=== PATIENT | female | born 1960 | race American Indian/Alaskan Native ===

== ENCOUNTER 2017-06-19 09:36 | Emergency (ER) | payer MEDICARE, OTHER ==
[2017-06-19 09:46] VITALS: BMI 41.0
--- NOTE | 2017-06-19 10:14 | PDOC ---
Attending Attestation - HPI HPI: 06/19/17 11:59 56 F with a PMH of HTN and cervical HNP, who presents to the ED c/o BUE, BLE, and generalized facial n/t for 3 weeks. She describes an intermittent pins and needles sensation that started in the right hand and is now in all extremities, worse at night. She also c/o numbness in her jaw, cramping in her bilateral wrists, a funny feeling in her forehead, and epigastric pain radiating down her abdomen. She was seen by her PMD for EKG and blood tests. PMD told the pt her sugar was high and informed the pt to go to the ER if she does not feel right again. Pt admits to frequent thirst and urination. Pt denies CP/SOB/JOHNSON/dizziness. Pt denies f/c, n/v/d, weakness. The patient denies dysuria and hematuria. Pt denies falls or balance abnormalities. - Physicial Exam PE: 06/19/17 11:59 GENERAL: Awake, alert, and fully oriented, in no acute distress HEAD: No signs of trauma EYES: PERRLA, EOMI, sclera anicteric, conjunctiva clear ENT: Auricles normal inspection, hearing grossly normal, nares patent, oropharynx clear without exudates. Moist mucosa NECK: Normal ROM, supple, no lymphadenopathy, JVD, or masses LUNGS: Breath sounds equal, clear to auscultation bilaterally. No wheezes, and no crackles HEART: Regular rate and rhythm, normal S1 and S2, no murmurs, rubs or gallops ABDOMEN: Soft, nontender, normoactive bowel sounds. No guarding, no rebound. No masses EXTREMITIES: Normal range of motion, no edema. No clubbing or cyanosis. No cords, erythema, or tenderness NEUROLOGICAL: Cranial nerves II through XII grossly intact. Normal speech SKIN: Warm, Dry, normal turgor, no rashes or lesions noted. <Maylin Key - Last Filed: 06/19/17 13:15> - Resident Resident Name: Asher Haskins - ED Attending Attestation I have performed the following: I have examined & evaluated the patient, The case was reviewed & discussed with the resident, I agree w/resident's findings & plan, Exceptions are as noted - Medical Decision Making 06/19/17 10:14 I, Dr. Linda Navas, DO, attest that this document has been prepared under my direction and personally reviewed by me in its entirety. I further attest, that it accurately reflects all work, treatment, procedures and medical decision -making performed by me. 06/19/17 11:53 a/p: 56yo female with b/l arm and leg tingling and facial tingling -no focal neuro deficits on exam -will obtain labs, head and c spine ct given hx of herniated discs -elevated lipids and glucose as outpt (per the patient) -will repeat labs and imaging -ekg, cxr -will monitor and reassess 06/19/17 11:54 patients numbness/tingling improving 06/19/17 14:[address] and c spine ct without acute findings labs reviewed without acute findings <Linda Navas - Last Filed: 06/19/17 14:19>
--- NOTE | 2017-06-19 10:24 | PDOC ---
History of Present Illness - History of Present Illness Initial Comments: 06/19/17 10:25 56 yo F with h/o HTN, who presents with numbness/tingling. Patient reports acute on chronic widespread numbness/tingling, and pins/needles sensation throughout BL UE, BL LE, and BL face. Also complains of cramping of BL wrists and extremity weakness this AM. Denies dysphagia, facial drooping, confusion, vertigo. Denies N/V, F/C, CP, SOB, abdominal pain, urinary complaints. PCP advised pt. to f/u in ED if s/s of CVA. Patient does not follow with neurology. <Asher Haskins - Last Filed: 06/19/17 13:57> <Linda Navas - Last Filed: 06/19/17 14:18> - General Stated Complaint: NUMBNESS Time Seen by Provider: 06/19/17 10:09 Past History - Past Medical History COPD: No DVT: No HTN: Yes - Immunization History Immunization Up to Date: Yes - Suicide/Smoking/Psychosocial Hx Smoking Status: No Smoking History: Never smoked Years of Tobacco Use: 0 Have you smoked in the past 12 months: No Number of Cigarettes Smoked Daily: 0 Cigars Per Day: 0 Information on smoking cessation initiated: No Hx Alcohol Use: No Drug/Substance Use Hx: No Substance Use Type: Alcohol <Asher Haskins - Last Filed: 06/19/17 13:57> <Linda Navas - Last Filed: 06/19/17 14:18> - Past Medical History Allergies/Adverse Reactions: Allergies Allergy/AdvReac Type Severity Reaction Status Date / Time No Known Allergies Allergy Verified 06/19/17 09:39 Home Medications: Ambulatory Orders Amlodipine Besylate [Norvasc -] 10 mg PO DAILY 09/03/14 Famotidine [Pepcid -] 20 mg PO BID PRN #60 tablet 09/03/14 Omeprazole [Prilosec (RX)] 40 mg PO DAILY 09/03/14 Review of Systems - Review of Systems Comments:: 06/19/17 10:24 GENERAL/CONSTITUTIONAL: No fever or chills. No weakness. HEAD, EYES, EARS, NOSE AND THROAT: No change in vision. No ear pain or discharge. No sore throat.- CARDIOVASCULAR: No chest pain or shortness of breath RESPIRATORY: No cough, wheezing, or hemoptysis. GASTROINTESTINAL: No nausea, vomiting, diarrhea or constipation. GENITOURINARY: No dysuria, frequency, or change in urination. MUSCULOSKELETAL: No joint or muscle swelling or pain. No neck or back pain. SKIN: No rash NEUROLOGIC: +change in strength/sensation. No headache, vertigo, loss of consciousness. ENDOCRINE: No increased thirst. No abnormal weight change HEMATOLOGIC/LYMPHATIC: No anemia, easy bleeding, or history of blood clots. ALLERGIC/IMMUNOLOGIC: No hives or skin allergy. <Asher Haskins - Last Filed: 06/19/17 13:57> *Physical Exam - Vital Signs Last Vital Signs Temp Pulse Resp BP Pulse Ox 98.4 F 79 16 149/80 98 06/19/17 09:41 06/19/17 09:41 06/19/17 09:41 06/19/17 09:41 06/19/17 09:41 - Physical Exam Comments: 06/19/17 10:24 GENERAL: Awake, alert, and fully oriented, in no acute distress HEAD: No signs of trauma, normocephalic, atraumatic EYES: PERRLA, EOMI, sclera anicteric, conjunctiva clear ENT: Hearing grossly normal, nares patent, oropharynx clear without exudates. Moist mucosa NECK: Normal ROM, supple, no lymphadenopathy, JVD, or masses LUNGS: No distress, speaks full sentences, clear to auscultation bilaterally HEART: Regular rate and rhythm, normal S1 and S2, no murmurs, rubs or gallops, peripheral pulses normal and equal bilaterally. EXTREMITIES : Normal inspection, Normal range of motion, no edema. No clubbing or cyanosis. NEUROLOGICAL: Cranial nerves II through XII grossly intact. Normal speech, normal gait, no focal sensorimotor deficits. Neg romberg sign. Normal BOUBACAR. absent dysmetria on FTN. SKIN: Warm, Dry, normal turgor, no rashes or lesions noted. <Asher Haskins - Last Filed: 06/19/17 13:57> - Vital Signs Last Vital Signs Temp Pulse Resp BP Pulse Ox 98.4 F 79 16 149/80 98 06/19/17 09:41 06/19/17 09:41 06/19/17 09:41 06/19/17 09:41 06/19/17 09:41 <Linda Navas - Last Filed: 06/19/17 14:18> ED Treatment Course - LABORATORY CBC & Chemistry Diagram: 06/19/17 12:15 06/19/17 12:15 <Asher Haskins - Last Filed: 06/19/17 13:57> - LABORATORY CBC & Chemistry Diagram: 06/19/17 12:15 06/19/17 12:15 - ADDITIONAL ORDERS Additional order review: Laboratory Results 06/19/17 06/19/17 06/19/17 12:15 12:15 12:15 Sodium 139 Potassium 3.8 Chloride 105 Carbon Dioxide 27 Anion Gap 7 L BUN 17 Creatinine 0.8 Creat Clearance w eGFR > 60 Random Glucose 112 H Calcium 8.5 Magnesium 2.1 2.1 Total Bilirubin 0.4 D AST 15 ALT 21 Alkaline Phosphatase 106 Creatine Kinase 84 Troponin I < 0.02 Total Protein 8.3 H Albumin 3.7 Vitamin B12 Cancelled Serum Folate Cancelled TSH 2.03 06/19/17 12:15 RBC 4.76 MCV 81.5 MCHC 31.5 L RDW 14.6 MPV 8.1 Neutrophils % 68.6 Lymphocytes % 21.7 D Monocytes % 6.6 Eosinophils % 2.3 D Basophils % 0.8 - RADIOLOGY Radiology Studies Ordered: Category Date Time Status CHEST PA & LAT [RAD] Stat Radiology 06/19/17 11:11 Ordered - Medications Given in the ED: ED Medications Discontinued Medications Generic Name Dose Route Start Last Admin Trade Name Freq PRN Reason Stop Dose Admin Sodium Chloride 1,000 ml 06/19/17 11:11 06/19/17 12:25 Normal Saline - IV 06/19/17 11:12 1,000 ml ONCE ONE Administration <Linda Navas - Last Filed: 06/19/17 14:18> Medical Decision Making - Medical Decision Making 06/19/17 10:55 56 yo F with h/o HTN, who presents with acute on chronic widespread numbness/ tingling, and pins/needles sensation throughout BL UE, BL LE, and BL face. Also complains of cramping of BL wrists and extremity weakness this AM. Denies dysphagia, facial drooping, confusion, vertigo. Denies N/V, F/C, CP, SOB, abdominal pain, urinary complaints. Absent neuro deficits on physical exam. S/s most likely 2/2 neuropathy ( diabetic vs. B12 deficient. Will also consider space occupying lesion vs CVA/TIA ( less likely). NIHSS 0. ED Course: CBC, CMP,Mag, B12, Folate, TSH CT HEAD NON CON, CT C SPINE NON CON 06/19/17 10:57 06/19/17 12:47 CBC/CMP: Unremarkable CT HEAD/ C SPINE: No fracture, hemorrhage, or bony abnormality. Patient stable and ready for d/c with return precautions. Advised to f/u with PMD. <Asher Haskins - Last Filed: 06/19/17 13:57> *DC/Admit/Observation/Transfer - Discharge Dispostion Admit: No - Attestations Physician Attestion: 06/19/17 13:57 I attest to the information provided in this note. <Asher Haskins - Last Filed: 06/19/17 13:57> <Linda Navas - Last Filed: 06/19/17 14:18> Diagnosis at time of Disposition: Numbness and tingling - Discharge Dispostion Disposition: HOME Condition at time of disposition: Stable - Referrals Referrals: Liang Hager MD [Staff Physician] - Seth Romo [Primary Care Provider] - - Patient Instructions Printed Discharge Instructions: DI for Numbness/tingling Additional Instructions: Please return to the emergency department with any new or worsening symptoms or concerns. Please follow up with neurology within one week. - Post Discharge Activity
[2017-06-19] MEDS ORDERED: SODIUM CHLORIDE 0.9% 1000 ML INFUS.BAG IV ONE (11:11)
[2017-06-19] MEDS ORDERED: IBUPROFEN 600 MG TABLET (FP) PO ONE ×3 (11:11→14:26)
[2017-06-19 12:28] LABS: BASO % 0.8 % (0-2.0); EOS % 2.3 % (0-4.5); HEMATOCRIT 38.8 % (32.4-45.2); HEMOGLOBIN 12.2 GM/dL (10.7-15.3); LYMPH % 21.7 % (8-40); MCH 25.7 pg (25.7-33.7); MCHC 31.5 g/dl (32.0-36.0); MEAN CELL VOLUME 81.5 fl (80-96); MEAN PLT VOLUME 8.1 fl (7.5-11.1); MONO % 6.6 % (3.8-10.2); NEUT % 68.6 % (42.8-82.8); PLATELET COUNT 360 K/MM3 (134-434); RBC 4.76 M/mm3 (3.60-5.2); RDW 14.6 % (11.6-15.6); WHITE BLOOD COUNT 7.5 K/mm3 (4.0-10.0)
[2017-06-19 13:20] LABS: ALBUMIN 3.7 g/dl (3.4-5.0); ALK PHOS 106 U/L (45-117); ANION GAP 7 (8-16); BILIRUBIN,TOTAL 0.4 mg/dL (0.2-1.0); BLOOD UREA NITROGEN 17 mg/dL (7-18); CALCIUM 8.5 mg/dL (8.5-10.1); CHLORIDE 105 mmol/L (98-107); CO2 27 mmol/L (21-32); CREATININE 0.8 mg/dL (0.55-1.02); GLUCOSE,RANDOM 112 mg/dL (74-106); MAGNESIUM 2.1 mg/dL (1.8-2.4); POTASSIUM 3.8 mmol/L (3.5-5.1); SGOT/AST 15 U/L (15-37); SGPT/ALT 21 U/L (12-78); SODIUM 139 mmol/L (136-145); TOT PROT 8.3 g/dl (6.4-8.2)
[2017-06-19 14:01] LABS: MAGNESIUM 2.1 mg/dL (1.8-2.4)
[2017-06-19 16:08] LABS: URINE APPEARANCE CLEAR; URINE BILIRUBIN NEGATIVE (NEGATIVE); URINE BLOOD 1+ (NEGATIVE); URINE COLOR STRAW; URINE GLUCOSE (UA) NEGATIVE (NEGATIVE); URINE KETONE NEGATIVE (NEGATIVE); URINE LEUK ESTERASE NEGATIVE (NEGATIVE); URINE NITRITE NEGATIVE (NEGATIVE); URINE PROTEIN NEGATIVE (NEGATIVE); URINE UROBILINOGEN NEGATIVE mg/dL (0.2-1.0)
[2017-06-19 16:13] LABS: EPI CELLS RARE /HPF (FEW)
[2017-06-19 17:59] VITALS: BP 140/81; PULSE 76; TEMP 97.9
--- NOTE | 2017-06-20 12:37 | EKG ---
Test Reason : Blood Pressure : / mmHG Vent. Rate : 059 BPM Atrial Rate : 059 BPM P-R Int : 154 ms QRS Dur : 086 ms QT Int : 424 ms P-R-T Axes : 021 039 -23 degrees QTc Int : 419 ms SINUS BRADYCARDIA NONSPECIFIC T WAVE ABNORMALITY ABNORMAL ECG WHEN COMPARED WITH ECG OF 31-MAY-2015 12:27, NONSPECIFIC T WAVE ABNORMALITY NOW EVIDENT IN ANTEROLATERAL LEADS CLINICAL CORRELATION IS RECOMMENDED Confirmed by GAIL PANDA, ABDI ([id number]) on 06/20/2017 12:37:00 PM Referred By: Confirmed By:ABDI REYNOLDS MD
== END 2017-06-19 17:59 | disposition home or self-care (01) ==
LOC: JER 09:36
DX: R20.2 Paresthesia of skin (principal); I10 Essential (primary) hypertension
CPT/HCPCS: 36415; 70450-TC; 71046-TC-FY; 72125-TC; 80053; 81003; 81015; 82550; 82607; 82746; 83735; 84443; 84484; 84703; 85025; 93005; 93010; 99284-25

== ENCOUNTER 2018-11-11 07:20 | Inpatient (IN) | payer MEDICARE, OTHER ==
--- NOTE | 2018-11-11 07:37 | PDOC ---
History of Present Illness - General Chief Complaint: CVA/TIA Stated Complaint: LEFT SIDE FACIAL SWELLING Time Seen by Provider: 11/11/18 07:37 - History of Present Illness Initial Comments: 11/11/18 07:51 Ms. Beach is a 58 yo female w/ pmh of HTN who presents for evaluation of L sided facial drooping noticed since waking up this morning. Patient reports she was at baseline when she went to bed last night. Patient denies any pain or other symptoms and has never had symptoms like this before. BGM upon arrival 111. The patient denies chest pain, shortness of breath, headache and dizziness. Denies fever, chills, nausea, vomit, diarrhea and constipation. Denies dysuria, frequency, urgency and hematuria. Past History - Past Medical History Allergies/Adverse Reactions: Allergies Allergy/AdvReac Type Severity Reaction Status Date / Time No Known Allergies Allergy Verified 06/19/17 09:39 Home Medications: Ambulatory Orders Amlodipine Besylate [Norvasc -] 10 mg PO DAILY 09/03/14 Lisinopril [Prinivil] 10 mg PO DAILY 11/11/18 COPD: No DVT: No HTN: Yes - Immunization History Immunization Up to Date: Yes - Suicide/Smoking/Psychosocial Hx Smoking Status: No Smoking History: Never smoked Years of Tobacco Use: 0 Have you smoked in the past 12 months: No Number of Cigarettes Smoked Daily: 0 Cigars Per Day: 0 Information on smoking cessation initiated: No Hx Alcohol Use: No Drug/Substance Use Hx: No Substance Use Type: Alcohol Review of Systems - Review of Systems Comments:: 11/11/18 07:52 GENERAL/CONSTITUTIONAL: No fever or chills. No weakness. HEAD, EYES, EARS, NOSE AND THROAT: No change in vision. No ear pain or discharge. No sore throat. CARDIOVASCULAR: No chest pain or shortness of breath RESPIRATORY: No cough, wheezing, or hemoptysis. GASTROINTESTINAL: No nausea, vomiting, diarrhea or constipation. GENITOURINARY: No dysuria, frequency, or change in urination. MUSCULOSKELETAL: No joint or muscle swelling or pain. No neck or back pain. SKIN: No rash NEUROLOGIC: No headache, vertigo, loss of consciousness, or change in strength/ sensation. ENDOCRINE: No increased thirst. No abnormal weight change HEMATOLOGIC/LYMPHATIC: No anemia, easy bleeding, or history of blood clots. ALLERGIC/IMMUNOLOGIC: No hives or skin allergy. *Physical Exam - Vital Signs Last Vital Signs Temp Pulse Resp BP Pulse Ox 98.1 F 84 16 164/89 100 11/11/18 07:32 11/11/18 07:32 11/11/18 07:32 11/11/18 07:32 11/11/18 07:32 - Physical Exam Comments: 11/11/18 07:52 GENERAL: Awake, alert, and fully oriented, in no acute distress HEAD: +minor L sided facial droop. No signs of trauma, normocephalic, atraumatic EYES: PERRLA, EOMI, sclera anicteric, conjunctiva clear ENT: Auricles normal inspection, hearing grossly normal, nares patent, oropharynx clear without exudates. Moist mucosa NECK: Normal ROM, supple, no lymphadenopathy, JVD, or masses LUNGS: No distress, speaks full sentences, clear to auscultation bilaterally HEART: Regular rate and rhythm, normal S1 and S2, no murmurs, rubs or gallops, peripheral pulses normal and equal bilaterally. ABDOMEN: Soft, nontender, normoactive bowel sounds. No guarding, no rebound. No masses EXTREMITIES: Normal inspection, Normal range of motion, no edema. No clubbing or cyanosis. NEUROLOGICAL: Cranial nerves II through XII grossly intact. Normal speech, normal gait, no focal sensorimotor deficits SKIN: Warm, Dry, normal turgor, no rashes or lesions noted. NIH Stroke Scale - Last Known Well Date/Time & Onset Date Last Known Well: 11/10/18 Time Last Known Well: 23:55 - Initial Evaluation Level of consciousness: Alert Ask patient the month and their age: Answers both correctly Ask patient to open & close eyes; make fist and let go: Obeys both correctly Best gaze (horizontal eye movement): Normal Visual field testing: No visual field loss Facial paresis (Show teeth/raise eyebrows/close eyes tight): Minor paralysis ( flattened nasolabial fold, asymmetry on smiling) Motor Function: Left Arm: Normal Motor Function: Right Arm: Normal (extends arm 90 (or 45) degrees for 10 seconds without drift Motor Function: Left Leg: Normal (extends leg 30 degrees for 5 seconds without drift) Motor Function: Right Leg: Normal (extends leg 30 degrees for 5 seconds without drift) Limb Ataxia: No ataxia Sensory(Use pinprick test arms,legs,trunk,face/side to side): Normal Best language (Describe picture, name items, read sentences): No Aphasia Dysarthria (read several words): Normal articulation Extinction and Inattention: No abnormality - Total Score NIH Stroke Scale Score: 1 tPA Exclusion checklist 3-4.5h - Time Elapsed Date last known well: 11/10/18 Time last known well: 23:55 Elaspsed time: Day(s) and 9 Hour(s) and 44 Minutes - Thrombolytic Therapy Candidate Is patient eligible for thrombolytic therapy: No - Exclusion Criteria 3-4.5 hr SBP greater than 185 or DBP greater than 110mmHg despite tx: No Recent IC/spinal surgery,head trauma or stroke<3mos.: No Hx IC hemorrhage, IC neoplasm, AV malformation or aneurysm: No Active internal bleeding: No Blding diathesis(low plt ct, inc PTT,INR>1.7 or use of NOAC): No Symptoms suggest subarachnoid hemorrhage: No CT demonstrates multilobar infarct(>1/3 cerebral hemiphere): No Arterial puncture at noncompressible site in previous 7 days: No Blood glucose concentration less than 50mg/dL (2.7mmol/L): No - Relative Exclusion Criteria 3-4.5 hr Life expectancy <1 yr or severe co-morbid illness: No : No Patient/family refused: No Rapid improvement: No Stroke severity too mild: Yes Recent acute CT (w/in previous 3 months): No Seizure at onset with postictal residual neuro impairments: No Major surgery or serious trauma w/in previous 14 days: No Recent GI or hemorrhage (w/in previous 21 days): No - Add'l Relative Exclusion 3-4.5 hr Age > 80: No Hx of both diabetes AND prior ischemic stroke: No Taking an oral anticoagulant regardless of INR: No NIHSS >25: No - Ineligibility reason(s) Reasons No tPA given: Outside of window - delayed arrival, See reason(s) noted above Critical Care Time/MDM Note - Medical Decision Making Note: 11/11/18 07:54 Ms. Beach is a 58 yo female w/ pmh as described who presents for evaluation of symptoms of L sided facial drooping concerning for wakeup stroke. Patient evaluated for infectious vs. electrolyte vs. neurological abnormalities. Labs grossly wnl as below. Head CT negative for acute pathology. EKG normal sinus rhythm. Patient will be admitted for further neurological evaluation / MRI. Laboratory Results - last 24 hr 11/11/18 11/11/18 11/11/18 07:50 07:50 07:50 WBC 7.8 RBC 4.40 Hgb 11.6 Hct 35.7 MCV 81.3 MCH 26.4 MCHC 32.5 RDW 15.1 Plt Count 394 MPV 8.2 Absolute Neuts (auto) 4.6 Neutrophils % 59.0 Lymphocytes % 31.0 D Monocytes % 7.2 Eosinophils % 2.2 Basophils % 0.6 Nucleated RBC % 0 PT with INR 12.00 INR 1.02 Sodium 141 Potassium 3.8 Chloride 106 Carbon Dioxide 29 Anion Gap 6 L BUN 13.0 Creatinine 0.8 Est GFR (CKD-EPI)AfAm 95.52 Est GFR (CKD-EPI)NonAf 82.42 POC Glucometer Random Glucose 111 H Calcium 8.8 Total Bilirubin 0.3 AST 15 ALT 17 Alkaline Phosphatase 117 Creatine Kinase 68 Troponin I < 0.02 Total Protein 7.9 Albumin 3.4 Triglycerides 83 Cholesterol 199 Total LDL Cholesterol 125 H HDL Cholesterol 63 H Urine Color Urine Appearance Urine pH Ur Specific [place] Urine Protein Urine Glucose (UA) Urine Ketones Urine Blood Urine Nitrite Urine Bilirubin Urine Urobilinogen Ur Leukocyte Esterase 11/11/18 11/11/18 07:52 07:56 WBC RBC Hgb Hct MCV MCH MCHC RDW Plt Count MPV Absolute Neuts (auto) Neutrophils % Lymphocytes % Monocytes % Eosinophils % Basophils % Nucleated RBC % PT with INR INR Sodium Potassium Chloride Carbon Dioxide Anion Gap BUN Creatinine Est GFR (CKD-EPI)AfAm Est GFR (CKD-EPI)NonAf POC Glucometer 111 Random Glucose Calcium Total Bilirubin AST ALT Alkaline Phosphatase Creatine Kinase Troponin I Total Protein Albumin Triglycerides Cholesterol Total LDL Cholesterol HDL Cholesterol Urine Color Yellow Urine Appearance Clear Urine pH 7.0 Ur Specific [place] 1.002 L Urine Protein Negative Urine Glucose (UA) Negative Urine Ketones Negative Urine Blood Negative Urine Nitrite Negative Urine Bilirubin Negative Urine Urobilinogen 0.2 Ur Leukocyte Esterase Negative *DC/Admit/Observation/Transfer Diagnosis at time of Disposition: Cerebrovascular accident (CVA) Qualifiers: CVA mechanism: unspecified Qualified Code(s): I63.9 - Cerebral infarction, unspecified - Discharge Dispostion Decision to Admit order: Yes - Referrals - Patient Instructions - Post Discharge Activity
[2018-11-11 08:02] LABS: BASO % 0.6 % (0-2.0); EOS % 2.2 % (0-4.5); HEMATOCRIT 35.7 % (32.4-45.2); HEMOGLOBIN 11.6 GM/dL (10.7-15.3); MCH 26.4 pg (25.7-33.7); MCHC 32.5 g/dl (32.0-36.0); MEAN CELL VOLUME 81.3 fl (80-96); MEAN PLT VOLUME 8.2 fl (7.5-11.1); MONO % 7.2 % (3.8-10.2); RDW 15.1 % (11.6-15.6); WHITE BLOOD COUNT 7.8 K/mm3 (4.0-10.0)
[2018-11-11 08:03] LABS: URINE APPEARANCE CLEAR; URINE BILIRUBIN NEGATIVE (NEGATIVE); URINE COLOR YELLOW; URINE GLUCOSE (UA) NEGATIVE (NEGATIVE); URINE KETONE NEGATIVE (NEGATIVE); URINE LEUK ESTERASE NEGATIVE (NEGATIVE); URINE NITRITE NEGATIVE (NEGATIVE); URINE PROTEIN NEGATIVE (NEGATIVE); URINE UROBILINOGEN 0.2 mg/dL (0.2-1.0)
[2018-11-11 08:25] LABS: ALBUMIN 3.4 g/dl (3.4-5.0); ALK PHOS 117 U/L (45-117); ANION GAP 6 MMOL/L (8-16); BILIRUBIN,TOTAL 0.3 mg/dL (0.2-1); CALCIUM 8.8 mg/dL (8.5-10.1); CHLORIDE 106 mmol/L (98-107); CHOLESTEROL 199 mg/dL (50-200); CO2 29 mmol/L (21-32); CREATININE 0.8 mg/dL (0.55-1.3); GLUCOSE,RANDOM 111 mg/dL (74-106); HDL CHOLESTEROL 63 mg/dL (40-60); POTASSIUM 3.8 mmol/L (3.5-5.1); SGOT/AST 15 U/L (15-37); SGPT/ALT 17 U/L (13-61); SODIUM 141 mmol/L (136-145); TOT PROT 7.9 g/dl (6.4-8.2); TRIGLYCERIDES 83 mg/dL (0-150)
[2018-11-11 08:29] LABS: PLATELET COUNT 394 K/MM3 (134-434)
[2018-11-11 08:33] LABS: INR 1.02 (0.83-1.09)
--- NOTE | 2018-11-11 08:58 | PDOC ---
Attending Attestation - Resident Resident Name: Jovanni Mcgovern - ED Attending Attestation I have performed the following: I have examined & evaluated the patient, The case was reviewed & discussed with the resident, I agree w/resident's findings & plan, Exceptions are as noted - HPI HPI: 58 yo F history HTN presents with L-sided facial droop. She states she felt well last night, but woke up this morning with the droop, in particular she noted a loss of the nasolabial fold on the L side. She was still able to move her forehead. It has improved since that time. Now she is having some numbness to the L leg and an intermittent pinching sensation in her chest. Denies SOB, leg swelling, weakness, headache. No recent trauma. - Physicial Exam PE: GENERAL: Awake, alert, and fully oriented, in no acute distress HEAD: No signs of trauma EYES: PERRLA, EOMI, sclera anicteric, conjunctiva clear ENT: Auricles normal inspection, hearing grossly normal, nares patent, oropharynx clear without exudates. Moist mucosa NECK: Normal ROM, supple, no lymphadenopathy, JVD, or masses LUNGS: Breath sounds equal, clear to auscultation bilaterally. No wheezes, and no crackles HEART: Regular rate and rhythm, normal S1 and S2, no murmurs, rubs or gallops ABDOMEN: Soft, nontender, normoactive bowel sounds. No guarding, no rebound. No masses EXTREMITIES: Normal range of motion, no edema. No clubbing or cyanosis. No cords, erythema, or tenderness NEUROLOGICAL: Cranial nerves II through XII grossly intact. Normal speech, normal gait. Motor and sensation intact SKIN: Warm, Dry, normal turgor, no rashes or lesions noted. - Medical Decision Making Pt with L sided facial droop that has resolved on arrival in ED, now with leg numbness and chest "pinching". NIHSS is 1 based on slight asymmetry of her mouth while talking. CTH no acute findings. Will admit to hospitalist service. NIH Stroke Scale - Last Known Well Date/Time & Onset Date Last Known Well: 11/10/18 - Initial Evaluation Level of consciousness: Alert Ask patient the month and their age: Answers both correctly Ask patient to open & close eyes; make fist and let go: Obeys both correctly Best gaze (horizontal eye movement): Normal Visual field testing: No visual field loss Facial paresis (Show teeth/raise eyebrows/close eyes tight): Minor paralysis ( flattened nasolabial fold, asymmetry on smiling) Motor Function: Left Arm: Normal Motor Function: Right Arm: Normal (extends arm 90 (or 45) degrees for 10 seconds without drift Motor Function: Left Leg: Normal (extends leg 30 degrees for 5 seconds without drift) Motor Function: Right Leg: Normal (extends leg 30 degrees for 5 seconds without drift) Limb Ataxia: No ataxia Sensory(Use pinprick test arms,legs,trunk,face/side to side): Normal Best language (Describe picture, name items, read sentences): No Aphasia Dysarthria (read several words): Normal articulation Extinction and Inattention: No abnormality - Total Score NIH Stroke Scale Score: 1
--- NOTE | 2018-11-11 10:10 | HP ---
CHIEF COMPLAINT: L facial droop PCP: HISTORY OF PRESENT ILLNESS: 58 y/o F with PMH HTN, GERD, herniated cervical and L5-S1 discs, who presents to the ED c/o L facial droop since she woke up this AM. As per pt, last night she went to sleep "sometime before midnight." States she was in her USOH at this time. She woke up between 6-6:30AM and noticed that the L side of her face was drooping. States that the L side of her face "felt heavy." Denied drooling, dysarthria, or any numbness in her face, or her UE or LE. At this point, she thought that she was having a stroke so she decided to take a shower and drink some mint tea before arriving to the ED for further evaluation. During this time , she endorses generalized myalgias from arthritis, and chronic indigestion for which she takes omeprazole. Denies JOHNSON, fever, chills, SOB, chest pain or changes in urinary or bowel function. Has been seen in past for b/l UE, LE numbness and tingling, which she attributes to her herniated cervical, and L5-S1 discs. Denies f/u with neuro. Has seen a paper supervisor in past, does not remember name. Stress test was WNL in 2013, and pt states she had one done across the street last yr. Was told it was WNL as well. At baseline, pt ambulates independently. Lives with at home. Is on worker's comp after workplace injuries while she was working at [employer] and after working for [employer] as a [employer]. ER course was notable for: (1) NIHSS : 1 by ER (2) outside tPA window (3) Recent Travel: denies PAST MEDICAL HISTORY: as above PAST SURGICAL HISTORY: L shoulder tear (2018) Social History: on worker's comp after workplace injuries while working at [employer] and [employer] as a [employer]. lives at home w . ambulates independently. From [facility]. Smoking: denies Alcohol: denies Drugs: denies Family History: brother -CABG, mother- passed at age 76 from "heart problems" and sister- pre-DM Allergies No Known Allergies Allergy (Verified 06/19/17 09:39) HOME MEDICATIONS: Amlodipine Besylate [Norvasc -] 10 mg PO DAILY 09/03/14 Gabapentin [Neurontin] 600 mg PO DAILY 11/11/18 Lisinopril [Prinivil -] 40 mg PO DAILY 11/11/18 Naproxen 500 mg PO BID 11/11/18 meds have been verified with pt's pharmacies. receives lisinopril and amlodipine from [facility] gabapentin, naproxen from [facility]. REVIEW OF SYSTEMS +GI indigestion +myalgias +L facial droop, numbness PHYSICAL EXAMINATION Vital Signs - 24 hr 11/11/18 11/11/18 07:32 09:41 Temperature 98.1 F 98.5 F Pulse Rate 84 Pulse Rate [ 67 Apical] Respiratory 16 16 Rate Blood Pressure 164/89 Blood Pressure 151/77 [Right Arm] O2 Sat by Pulse 100 98 Oximetry (%) GENERAL: Pleasant. AAO x 3 . in NAD HEAD: NCAT. +L flattening nasolabial fold EYES: Pupils equal, round and reactive to light, extraocular movements intact EARS, NOSE, THROAT: Ears normal, nares patent, oropharynx clear without exudates. Moist mucous membranes. NECK: Normal range of motion, supple LUNGS: Breath sounds equal, clear to auscultation bilaterally. No wheezes, and no crackles. No accessory muscle use. HEART: Regular rate and rhythm, normal S1 and S2 without murmur, rub or gallop. ABDOMEN: Soft, obese, nontender, not distended, normoactive bowel sounds MUSCULOSKELETAL: +hyperkeratotic scars L shoulder from past sx UPPER EXTREMITIES: +scratch mascorro RUE LOWER EXTREMITIES: 2+ pt pulses, warm, well-perfused. No calf tenderness. No peripheral edema. NEUROLOGICAL: Cranial nerves II-XII intact. +L flattening nasolabial fold, facial droop w/ decr sensation. +decr sensation to pinprick over LLE. No pronator drift. 5/5 motor strength UE, LE. No dysmetria, FTN, HTS intact. PSYCHIATRIC: Cooperative. Good eye contact. SKIN: Warm, dry, normal turgor Laboratory Tests 11/11/18 11/11/18 11/11/18 07:50 07:50 07:56 WBC 7.8 Hgb 11.6 Hct 35.7 Plt Count 394 Sodium 141 Potassium 3.8 Chloride 106 Carbon Dioxide 29 BUN 13.0 Creatinine 0.8 Random Glucose 111 H Triglycerides 83 Cholesterol 199 Total LDL Cholesterol 125 H HDL Cholesterol 63 H Ur Specific [place] 1.002 L Urine Protein Negative Urine Glucose (UA) Negative Urine Ketones Negative Urine Blood Negative Urine Nitrite Negative Urine Bilirubin Negative Urine Urobilinogen 0.2 EKG: NSR, nl axis, rate 69bpm, qtc 428ms. no st-t wave changes CTH: mild vol loss, without acute changes ASSESSMENT/PLAN: 58 y/o F with PMH HTN, GERD, herniated cervical and L5-S1 discs, who presents to the ED c/o L facial droop since she woke up this AM. #R/o CVA -NIHSS 2 on my exam (+flattened L nasolabial fold, mild sensation loss sharp/ dull LLE) -outside of tPA window as pt woke up with sx. -CTH (-) for acute changes -started on asa 81mg qd, crestor 20mg qd -f/u ECHO -f/u carotid duplex -f/u brain MRI -f/u a1c -PT -S/S -neurochecks q2h -stroke/tele monitoring -Neuro consult: Dr. Hager. called by ED #HTN- uncontrolled -did not take meds this AM -allow for permissive htn 24hrs -c/w lisinopril, amlodipine #GERD -c/w protonix pt was not taking at home since insurance ran out #herniated cervical, L5-s1 discs -hold naproxen for now, not in pain currently -can use tylenol PRN if needed #hx b/l numbness, tingling LE -c/w gabapentin qHS #F/E/N no IVF required at this time continue to follow lytes cholesterol controlled/low na diet. passed bedside swallow however as per protocol S/S #PPX hep 5k sq tid #Dispo admit to tele Visit type - Emergency Visit Emergency Visit: Yes ED Registration Date: 11/11/18 Care time: The patient presented to the Emergency Department on the above date and was hospitalized for further evaluation of their emergent condition. - New Patient This patient is new to me today: Yes Date on this admission: 11/11/18 - Critical Care Critical Care patient: No
[2018-11-11] MEDS ORDERED: LISINOPRIL 20 MG TABLET (FP) PO SCH (10:19)
[2018-11-11] MEDS ORDERED: amLODIPine BESYLATE 10 MG TABLET (FP) PO SCH (10:19)
[2018-11-11] MEDS ORDERED: ASPIRIN 81 MG CHEWABLE TABLETS ONE (10:25)
[2018-11-11] MEDS: ASPIRIN 81 MG CHEWABLE TABLETS PO SCH (10:27)
--- NOTE | 2018-11-11 11:30 | EKG ---
Test Reason : Blood Pressure : / mmHG Vent. Rate : 069 BPM Atrial Rate : 069 BPM P-R Int : 150 ms QRS Dur : 086 ms QT Int : 400 ms P-R-T Axes : 035 019 006 degrees QTc Int : 428 ms NORMAL SINUS RHYTHM NONSPECIFIC ST ABNORMALITY POOR R WAVE PROGRESSION Confirmed by EMMETT TOMLINSON MD ([id number]) on 11/11/2018 11:30:03 AM Referred By: Confirmed By:EMMETT TOMLINSON MD
--- NOTE | 2018-11-11 11:58 | PN ---
Teaching Attending Note Name of Resident: Neena Sharp ATTENDING PHYSICIAN STATEMENT I saw and evaluated the patient. I reviewed the resident's note and discussed the case with the resident. I agree with the resident's findings and plan as documented. SUBJECTIVE:58yo F with PMH HTN and GERD presented to the Er after having L facial droop and heaviness. states she went to bed without any symptoms and that these symptoms started when waking up. had no other assoc symptoms. denies Cp, SOB, fever, chills, N/V/c/d, was feeling well the past few days, states she has not taken her meds for over a month but did take norvasc last night because she found her bottle. OBJECTIVE: Last Vital Signs Temp Pulse Resp BP Pulse Ox 98.5 F 67 16 151/77 98 11/11/18 09:41 11/11/18 09:41 11/11/18 09:41 11/11/18 09:41 11/11/18 09:41 General NAD CV S1 S2 RRR no murmur/rub/gallop lungs CTA B/L no wheeezing/rales/rhonchi Abdomen soft NT/ND Extremities no pedal edema Neuro CN II-XII grossly intact, speech intact. no pronator no dysmetria. strength and sensation equal in all 4 extremities, gait testing deferred ASSESSMENT AND PLAN: 58yo F with PMH HTN and GERD presented to the Er after having L facial droop and heaviness 1. R/o CVA- tele admission for cardiac monitoring. NIHSS on arrival 1. nothing on my exam but reports her L side of face feels heavy. no TPA as outside window. will get MRI, carotid doppler and echo. Neuro/speech and swallow and PT eval. start ASA and high intensity statin. lipid DVT profile and head CT reviewed. 2. HTN- allow for permissive HTN, re-start home medications ater 24H to maintain tight BP control 3. DVT ppx- hep sq
--- NOTE | 2018-11-11 11:59 | CONSULT ---
Admitting History and Physical - Primary Care Physician PCP: Adrienne Parker - Admission History of Present Illness: 58 y/o F with PMH HTN, GERD, herniated cervical and L5-S1 discs, who presents to the ED c/o L facial droop since she woke up this AM. Selected Entries 11/11/18 11/11/18 07:32 09:41 Temperature 98.1 F 98.5 F Blood Pressure 164/89 Blood Pressure 151/77 [Right Arm] Laboratory Tests 11/11/18 07:50 WBC 7.8 History Source: Patient Limitations to Obtaining History: No Limitations - Smoking History Smoking history: Never smoked Have you smoked in the past 12 months: No Aproximately how many cigarettes per day: 0 - Alcohol/Substance Use Hx Alcohol Use: No History - Admission Reason For Visit: CVA - Diagnostics X-ray: Report Reviewed CT Scan: Report Reviewed Modified Barium Swallow: Pending - General Mental Status: Alert and Oriented, Awake and Alert, Able to Follow Commands Attention: Intact Ability to Follow Directions: Excellent Head/Neck Control: WFL - Hearing Hearing: Functional Speech Evaluation - Communication Primary Language: TAMAZIGHT Communication: Yes: Within Normal Limits Oral Expression Ability: Yes: No Impairment - Speech Production Able to Make Needs Known: Yes: WNL Intelligibility: Yes: WNL - Speech Characteristics Voice Loudness: Normal Voice Pitch: Yes: Normal Voice Phonatory-based Quality: Yes: Normal Speech Pattern: Normal Speech Clarity: < 100% Nasal Resonance: Normal Articulation: Yes: Precise Rate of Speech: Intact - Language/Auditory Comprehension Follows: Yes: 2 Stage Simple Commands - Language/Verbal Expression Able to Respond to Simple Queries: Yes: WNL Able to Communicate Wants and Needs: Yes: WNL Functional Communication Status: Yes: WNL - Memory/Perception rat exterminator Memory: Yes: WNL Short Term Memory: Yes: WNL - Swallow Evaluation/Bedside Assessment Current Nutritional Intake: Regular, Thin Liquids Oral Secretions: Yes: WFL Dentition: Yes: Adequate, Missing Teeth Facial Symmetry at Rest: Facial Droop Left (mild) Facial Symmetry on Retraction: Symmetrical Facial Movement: Controlled Sensation: Reduced Left Against Resistance Opening: Normal Against Resistance Closing: Normal Pucker Lips: Normal Smile: Normal Lingual Movement: Normal, Symmetric Lingual Speed of Movement: Normal Lingual Movement Strgth Against Opposition: Normal Lingual Movement Characteristics: Normal Laryngeal Movement: Able to Palpate Rate of Intake: WFL Bolus Size: WFL Labial Seal: WFL Chewing: WFL Oral Prep Time: WFL A-P Transit: WFL Pocketing: None Timing of Swallow: WFL Coughing/Throat Clear: No Change in Voice: No Recommendations - Speech Evaluation, Impression/Plan Impression: Mild left facial at rest with good labial retraction. Reports reduced sensation on left. Reports some visual difficulty on left- "feels like my hair is covering me on the left-Hemianopsia? No left neglect. Able to identify no. of fingers peripherally without difficulty. Cognition, language, speech prod, swallowing grossly intact/functional - Dysphagia Impressions/Plan Swallowing Skills: WFL Dysphagia Impressions: No Impairment *Silent aspiration: cannot be R/O at bedside Recommendations: Neuro Consult - Recommendations Diet Consistency: Regular Medication Administration: Whole with water Liquids: Thin Liquids
[2018-11-11] MEDS: PANTOPRAZOLE 20 MG TABLET (FP) PO SCH (14:00)
[2018-11-11] MEDS ORDERED: PANTOPRAZOLE 40 MG TABLET (FP) ONE (14:19)
--- NOTE | 2018-11-11 15:08 | ECHO ---
Name: MELVA TOBIAS Exam:Adult Echocardiogram Study Date: 11/11/2018 02:12 PM Age: 58 yrs Reason For Study: R/O CVA Height: 61 in Weight: 224 lb BSA: 2.0 m2 MMode/2D Measurements & Calculations IVSd: 0.82 cm Ao root diam: 2.4 cm LVIDd: 5.3 cm LA dimension: 3.3 cm LVIDs: 3.8 cm LVPWd: 0.83 cm EDV(Teich): 134.7 ml LVOT diam: 2.0 cm ESV(Teich): 62.7 ml Doppler Measurements & Calculations MV E max jey: 84.9 cm/sec Ao V2 max: 152.0 cm/sec MV A max jey: 84.9 cm/sec Ao max P.2 mmHg MV E/A: 1.0 Ao V2 mean: 110.6 cm/sec MV dec time: 0.28 sec Ao mean P.4 mmHg Ao V2 VTI: 37.4 cm JEB(I,D): 1.2 cm2 JEB(V,D): 1.2 cm2 LV V1 max P.3 mmHg SV(LVOT): 44.5 ml LV V1 mean P.78 mmHg LV V1 max: 56.3 cm/sec LV V1 mean: 42.3 cm/sec LV V1 VTI: 14.3 cm Med Peak E' Jey: 7.0 cm/sec Med E/e': 12.1 Lat Peak E' Jey: 9.1 cm/sec Lat E/e': 9.4 Procedure The study was technically difficult with many images being suboptimal in quality. Left Ventricle Left ventricular systolic function is grossly normal. Ejection Fraction = 50-55%. Right Ventricle The right ventricle is grossly normal size. The right ventricular systolic function is grossly normal . Atria Normal left and right atrial size and function. Mitral Valve The mitral valve is normal in structure and function. There is no mitral valve stenosis. There is tra ce to mild mitral regurgitation. Tricuspid Valve The tricuspid valve is normal in structure and function. There is mild tricuspid regurgitation. Aortic Valve The aortic valve opens well. No hemodynamically significant valvular aortic stenosis. No aortic regur gitation is present. Pulmonic Valve The pulmonic valve is not well seen, but is grossly normal. There is no pulmonic valvular stenosis. Great Vessels The aortic root is normal size. Pericardium/Pleura There is no pericardial effusion. Interpretation Summary The study was technically difficult with many images being suboptimal in quality. Left ventricular systolic function is grossly normal. Ejection Fraction = 50-55%. There is trace to mild mitral regurgitation. There is mild tricuspid regurgitation. There is no pericardial effusion. MD Goldstein *Dawit 11/11/2018 03:08 PM
[2018-11-11] MEDS ORDERED: HEPARIN NA (PORCINE) 5,000 UNITS/ML 1ML VIAL ONE (19:24)
[2018-11-11] MEDS: HEPARIN NA (PORCINE) 5,000 UNITS/ML 1ML VIAL SQ SCH (19:28)
[2018-11-11] MEDS: GABAPENTIN 300 MG CAPSULE (FP) PO SCH ×2 (21:41→21:43)
[2018-11-11] MEDS ORDERED: ATORVASTATIN CA 40 MG TABLET (FP) PO SCH (22:00)
[2018-11-11] MEDS ORDERED: ROSUVASTATIN CA 20 MG TABLET (FP) PO SCH (22:00)
[2018-11-12 01:21] VITALS: BMI 40.9
[2018-11-12] MEDS: HEPARIN NA (PORCINE) 5,000 UNITS/ML 1ML VIAL SQ SCH ×2 (01:30→09:45)
[2018-11-12 07:30] LABS: BLOOD UREA NITROGEN 12.1 mg/dL (7-18); CALCIUM 8.6 mg/dL (8.5-10.1); CREATININE 0.7 mg/dL (0.55-1.3); MAGNESIUM 2.3 mg/dL (1.8-2.4); PHOSPHOROUS 3.5 mg/dL (2.5-4.9); POTASSIUM 4.1 mmol/L (3.5-5.1)
[2018-11-12] MEDS: ASPIRIN 81 MG CHEWABLE TABLETS PO SCH (09:46)
[2018-11-12] MEDS: PANTOPRAZOLE 20 MG TABLET (FP) PO SCH (09:46)
[2018-11-12] MEDS ORDERED: LISINOPRIL 20 MG TABLET (FP) PO SCH (10:00)
[2018-11-12] MEDS ORDERED: amLODIPine BESYLATE 10 MG TABLET (FP) PO SCH (10:00)
--- NOTE | 2018-11-12 13:02 | CON.NEURO ---
Consult Consult Specialty:: NEUROLOGY-TONYA PANDA for DR. Hager - History of Present Illness History of Present Illness: 58yo F with PMH HTN and GERD presented to the Er after having L facial droop and heaviness. states she went to bed without any symptoms and that these symptoms started when waking up. had no other assoc symptoms. denies Cp, SOB, fever, chills, N/V/c/d, was feeling well the past few days, states she has not taken her meds for over a month but did take norvasc last night because she found her bottle.Reports she feels better now, started on ASA - Past Medical History ...: No - Alcohol/Substance Use Hx Alcohol Use: No - Smoking History Smoking history: Never smoked Have you smoked in the past 12 months: No Aproximately how many cigarettes per day: 0 Home Medications - Allergies Allergies/Adverse Reactions: Allergies Allergy/AdvReac Type Severity Reaction Status Date / Time No Known Allergies Allergy Verified 06/19/17 09:39 - Home Medications Home Medications: Ambulatory Orders Amlodipine Besylate [Norvasc -] 10 mg PO DAILY 09/03/14 Gabapentin [Neurontin] 300 mg PO HS 11/11/18 Lisinopril [Prinivil -] 40 mg PO DAILY 11/11/18 Aspirin [ASA -] 81 mg PO DAILY #30 tab.chew 11/12/18 Rosuvastatin [Crestor -] 20 mg PO HS #30 tablet 11/12/18 Physical Exam-Neuro Vital Signs: Vital Signs Temperature 97.8 F 11/12/18 10:00 Pulse Rate 77 11/12/18 10:00 Respiratory Rate 18 11/12/18 10:00 Blood Pressure 161/73 11/12/18 10:00 O2 Sat by Pulse Oximetry (%) 100 11/12/18 08:42 Labs: CBC, BMP 11/11/18 07:50 11/12/18 05:36 INR, PTT INR 1.02 (0.83-1.09) 11/11/18 07:50 - Neuro Exam DTR's: 1+ Left Bicep, 1+ Right Bicep, 1+ Left Tricep, 1+ Right Tricep, 1+ Left Brachioradialis, 1+ Right Brachioradialis, 1+ Left Achilles, 1+ Right Achilles Motor Strength: 5/5: Left Arm, Right Arm, Left Leg, Right Leg Imaging - Results Cat Scan: Report Reviewed (without abn.) MRI: Report Reviewed (without abn.) Assessment/Plan pt. with vasc.risk factors, now with transient/resolved left face "heaviness" and ?/facial palsy. DDx. includes more likely [place], less likely TIA. no further neurologuic intervention required at this time. Cont. antiplatelet agent. f/u as out.pt with Dr. hager.Thank you.
--- NOTE | 2018-11-12 13:34 | DS ---
Physical Exam: SUBJECTIVE: Patient seen and examined OBJECTIVE: Vital Signs Period Temp Pulse Resp BP Sys/[place] Pulse Ox Last 24 Hr 97.8 F-98.7 F 55-77 16-18 110-161/66-75 99-100 PHYSICAL EXAM GENERAL: The patient is awake, alert, and fully oriented, in no acute distress. HEAD: Normal with no signs of trauma. EYES: PERRL, extraocular movements intact, sclera anicteric, conjunctiva clear. ENT: Ears normal, nares patent, oropharynx clear without exudates, moist mucous membranes. NECK: Trachea midline, full range of motion, supple. LUNGS: Breath sounds equal, clear to auscultation bilaterally, no wheezes, no crackles, no accessory muscle use. HEART: Regular rate and rhythm, S1, S2 without murmur, rub or gallop. ABDOMEN: Soft, nontender, nondistended, normoactive bowel sounds, no guarding, no rebound, no hepatosplenomegaly, no masses. EXTREMITIES: 2+ pulses, warm, well-perfused, no edema. NEUROLOGICAL: Cranial nerves II through XII grossly intact. Normal speech, gait not observed. PSYCH: Normal mood, normal affect. SKIN: Warm, dry, normal turgor, no rashes or lesions noted. LABS Laboratory Results - last 24 hr 11/11/18 11/11/18 11/12/18 13:23 13:25 05:36 Sodium 141 Potassium 4.1 Chloride 106 Carbon Dioxide 29 Anion Gap 7 L BUN 12.1 Creatinine 0.7 Est GFR (CKD-EPI)AfAm 112.26 Est GFR (CKD-EPI)NonAf 96.86 Random Glucose 85 Calcium 8.6 Phosphorus 3.5 Magnesium 2.3 Blood Type O POSITIVE O POSITIVE Antibody Screen Negative HOSPITAL COURSE: Date of Admission:11/11/18 Date of Discharge: 11/12/18 ADmitting diagnosis: TIA vs [place] palsy Pre hospital course 58 y/o F with PMH HTN, GERD, herniated cervical and L5-S1 discs, who presents to the ED c/o L facial droop since she woke up this AM. As per pt, last night she went to sleep "sometime before midnight." States she was in her USOH at this time. She woke up between 6-6:30AM and noticed that the L side of her face was drooping. States that the L side of her face "felt heavy." Denied drooling, dysarthria, or any numbness in her face, or her UE or LE. At this point, she thought that she was having a stroke so she decided to take a shower and drink some mint tea before arriving to the ED for further evaluation. During this time , she endorses generalized myalgias from arthritis, and chronic indigestion for which she takes omeprazole. Denies JOHNSON, fever, chills, SOB, chest pain or changes in urinary or bowel function. Has been seen in past for b/l UE, LE numbness and tingling, which she attributes to her herniated cervical, and L5-S1 discs. Denies f/u with neuro. Has seen a head of maintenance in past, does not remember name. Stress test was WNL in 2013, and pt states she had one done across the street last yr. Was told it was WNL as well. At baseline, pt ambulates independently. Lives with at home. 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 Subsequent hospital course Ad[facility] cardiac monitoring., no events on monitor. Echo, carotid doppler, Brain MRI and Head CT were done and all negative. symptoms resolved. started on asa and crestor. seen by neuro. stressed importance of medication complaince as pt takes meds intermittently. d/c home with outpatient follow up Minutes to complete discharge: 40 Discharge Summary Reason For Visit: CVA Condition: Improved - Instructions Diet, Activity, Other Instructions: You were observed in the hospital because of your facial numbness which has improved. All testing was negative You were started on medications to lower your risks of having a stroke in the future. Caution taking an NSAID (Naproxen) while on aspirin as this can increase your risk of bleeding. Take these medications as instructed. it is very important that you take your medications as instructed on a daily basis Follow a low salt diet, Increase exercise to 3x/week for 30 minute intervals and increase as tolerated. These will promote healthy living and weight loss. Follow up [facility] neurology in 2 weeks Follow up with your primary care doctor in 1 week. IF you do not have one. information on one has been provided. If your symptoms worsen or develop chest pain return to the ER. Referrals: Varinder Mcwilliams MD [Staff Physician] - Liang Hager MD [Staff Physician] - Disposition: HOME - Home Medications Comprehensive Discharge Medication List: Ambulatory Orders Amlodipine Besylate [Norvasc -] 10 mg PO DAILY 09/03/14 Gabapentin [Neurontin] 300 mg PO HS 11/11/18 Lisinopril [Prinivil -] 40 mg PO DAILY 11/11/18 Aspirin [ASA -] 81 mg PO DAILY #30 tab.chew 11/12/18 Rosuvastatin [Crestor -] 20 mg PO HS #30 tablet 11/12/18 This patient is new to me today: No Emergency Visit: Yes ED Registration Date: 11/11/18 Care time: The patient presented to the Emergency Department on the above date and was hospitalized for further evaluation of their emergent condition. Critical Care patient: No - Discharge Referral Referred to [facility] Med P.C.: No
[2018-11-12 15:42] VITALS: BP 134/69; PULSE 68; TEMP 98.4
== END 2018-11-12 15:30 | disposition home or self-care (01) | DRG 74 ==
LOC: JER 07:20 → INTOOBSV 08:46 → UNDOADMOB 08:46 → JERBED 08:46 → OBSVTOIN 11:16 → J4W 19:45
PROVIDERS: ADMIT Internal Medicine; ATTEND Internal Medicine
DX: G51.0 Bell's palsy (principal); I10 Essential (primary) hypertension; R29.701 NIHSS score 1; K21.9 Gastro-esophageal reflux disease without esophagitis; M50.20 Other cervical disc displacement, unspecified cervical region; M51.27 Other intervertebral disc displacement, lumbosacral region; R20.0 Anesthesia of skin
CPT/HCPCS: 36415; 70450-TC; 70551-TC; 80048; 80053; 81003; 82465; 82550; 82962; 83036; 83718; 83721; 83735; 84100; 84478; 84484; 85025; 85610; 86850; 86900; 86901; 93005; 93010; 93306-TC; 93880-TC; 97116-GP; 97161-GP; 99285-25; G0378; J1644

== ENCOUNTER 2018-11-13 19:03 | Emergency (ER) | payer OTHER ==
[2018-11-13 19:10] VITALS: BMI 40.8
[2018-11-13] MEDS ORDERED: DEXAMETHASONE SOD PHOSPHATE 10 MG/1 ML VIAL IM ONE (19:43)
[2018-11-13] MEDS ORDERED: RANITIDINE HCL 150 MG TABLET (FP) PO ONE (19:44)
[2018-11-13] MEDS ORDERED: RANITIDINE HCL 150 MG TABLET (FP) ONE (19:49)
[2018-11-13] MEDS ORDERED: DEXAMETHASONE SOD PHOSPHATE 10 MG/1 ML VIAL ONE (19:49)
--- NOTE | 2018-11-13 19:56 | PDOC ---
History of Present Illness - General Chief Complaint: Allergic Reaction Stated Complaint: RIGHT SIDE SWELLING Time Seen by Provider: 11/13/18 19:30 History Source: Patient Exam Limitations: Clinical Condition - History of Present Illness Initial Comments: 11/13/18 19:51 Patient with history of hypertension on amlodipine and lisinopril present with complaint of swelling to right side of upper lip after taking a dose of amlodipine and lisinopril this morning. Patient reported she stopped taking her lisinopril medication while ago and restarted it again this morning. Patient reported swelling to right side of upper lip started as mild swelling and has worsening. Denies choking sensation, shortness of breath, tongue swelling. Denies any other symptoms Timing/Duration: 1-3 hours Past History - Past Medical History Allergies/Adverse Reactions: Allergies Allergy/AdvReac Type Severity Reaction Status Date / Time No Known Allergies Allergy Verified 11/13/18 19:09 Home Medications: Ambulatory Orders Amlodipine Besylate [Norvasc -] 10 mg PO DAILY 09/03/14 Gabapentin [Neurontin] 300 mg PO HS 11/11/18 Aspirin [ASA -] 81 mg PO DAILY #30 tab.chew 11/12/18 Rosuvastatin [Crestor -] 20 mg PO HS #30 tablet 11/12/18 Famotidine [Pepcid -] 20 mg PO BID 5 Days #10 tablet 11/13/18 predniSONE [Deltasone -] 20 mg PO BID 4 Days #8 tablet 11/13/18 COPD: No DVT: No Diabetes: Yes (pre diabetes) HTN: Yes - Surgical History Orthopedic Surgery: Yes (Ligament repair on shoulder) - Immunization History Immunization Up to Date: Yes - Suicide/Smoking/Psychosocial Hx Smoking Status: No Smoking History: Never smoked Years of Tobacco Use: 0 Have you smoked in the past 12 months: No Number of Cigarettes Smoked Daily: 0 Cigars Per Day: 0 Hx Alcohol Use: No Drug/Substance Use Hx: No Substance Use Type: Alcohol Review of Systems - Review of Systems Able to Perform ROS?: Yes Is the patient limited Kiswahili proficient: No Constitutional: No: Malaise, Weakness HEENTM: Yes: Symptoms Reported, See HPI, Other (swelling to right side of upper lip). No: Eye Pain, Blurred Vision, Tearing, Recent change in vision, Double Vision, Cataracts, Ear Pain, Ocular Prothesis, Ear Discharge, Nose Pain, Nose Congestion, Tinnitus, Nose Bleeding, Hearing Loss, Throat Pain, Throat Swelling , Mouth Pain, Dental Problems, Difficulty Swallowing, Mouth Swelling Respiratory: No: Symptoms reported, See HPI, Cough, Orthopnea, Shortness of Breath, SOB with Exertion, SOB at Rest, Stridor, Wheezing, Productive cough, Hemoptysis, Other Cardiac (ROS): No: Irregular Heart Rate, Lightheadedness, Palpitations, Chest Tightness ABD/GI: No: Nausea, Vomiting Integumentary: Yes: Symptoms Reported, See HPI, Other (swelling to right upper lip) Neurological: No: Numbness, Paresthesia, Tingling All Other Systems: Reviewed and Negative *Physical Exam - Vital Signs Last Vital Signs Temp Pulse Resp BP Pulse Ox 98.6 F 76 18 149/76 99 11/13/18 19:06 11/13/18 19:06 11/13/18 19:06 11/13/18 19:06 11/13/18 19:06 - Physical Exam Comments: 11/13/18 19:55 GENERAL: Well developed, well nourished. Awake and alert. No acute distress. HEENT: Moderate swelling to right side of upper lip. Normocephalic, atraumatic. PERRLA, EOMI. No conjunctival pallor. Sclera are non-icteric. Moist mucous membranes. Oropharynx is clear. NECK: Supple. Full ROM. CARDIOVASCULAR: Regular rate and rhythm. No murmurs, rubs, or gallops. Distal pulses are 2+ and symmetric. PULMONARY: No evidence of respiratory distress. Lungs clear to auscultation bilaterally. No wheezing, rales or rhonchi. ABDOMINAL: Soft. Non-tender. Non-distended. No rebound or guarding. No organomegaly. Normoactive bowel sounds. MUSCULOSKELETAL Normal range of motion at all joints. SKIN: Warm and dry. Normal capillary refill. Moderate swelling to right side of upper lip consistent with angioedema. No change in color skin. No skin erythema NEUROLOGICAL: Alert, awake, appropriate. Gait is normal without ataxia. PSYCHIATRIC: Cooperative. Good eye contact. Appropriate mood General Appearance: Yes: Nourished, Appropriately Dressed. No: Apparent Distress Medical Decision Making - Medical Decision Making 11/13/18 19:53 Patient with history of hypertension on amlodipine and lisinopril present with complaint of swelling to right side of upper lip after taking a dose of amlodipine and lisinopril this morning. Patient reported she stopped taking her lisinopril medication while ago and restarted it again this morning. Patient reported swelling to right side of upper lip started as mild swelling and has worsening. Denies choking sensation, shortness of breath, tongue swelling. Denies any other symptoms Exam significant for moderate angioedema to right side of upper lip. Oropharynx patent. Patient in no acute distress. Symptoms likely angioedema from lisinopril. Decadron 10 mg IM, Benadryl 50 mg IM and Zantac 125 mg by mouth ordered for angioedema. Patient in no acute distress and symptoms started over 3 hours ago, Patient will be observed for another 3 hours for progression of symptoms and discharge if no symptoms progression 11/13/18 22:48 Patient with significant improvement in angioedema after decadron, zantac and benadryl. Patient stable for discharge on 3 more days of prednisone and pepcid with PCP f/u. Patient advised to stop taking lisinopril and follow-up with PCP 11/13/18 23:03 Patient stable for discharge after 4 hours of observation without progression of symptoms *DC/Admit/Observation/Transfer Diagnosis at time of Disposition: Angioedema due to angiotensin converting enzyme inhibitor (MIKE-I) - Discharge Dispostion Disposition: HOME Condition at time of disposition: Stable Decision to Admit order: No - Prescriptions Prescriptions: Famotidine [Pepcid -] 20 mg PO BID 5 Days #10 tablet predniSONE [Deltasone -] 20 mg PO BID 4 Days #8 tablet - Referrals Referrals: Aj Hughes MD [Staff Physician] - - Patient Instructions Printed Discharge Instructions: Angioedema, DI for Angioedema Additional Instructions: Stop taking lisinopril medication. Take prescribed medication for angioedema. Follow-up with PCP or sociology research assistant to change blood pressure medication - Post Discharge Activity
[2018-11-13 22:57] VITALS: BP 134/72; PULSE 82; TEMP 98.1
== END 2018-11-13 22:57 | disposition home or self-care (01) ==
LOC: JERFT 19:03
PROC: 3E0233Z Introduction of Anti-inflammatory into Muscle, Percutaneous Approach (ICD-10-PCS; principal; 2018-11-13)
PROC: 3E023GC Introduction of Other Therapeutic Substance into Muscle, Percutaneous Approach (ICD-10-PCS; 2018-11-13)
DX: T78.3XXA Angioneurotic edema, initial encounter (principal); T78.49XA Other allergy, initial encounter; T46.1X5A Adverse effect of calcium-channel blockers, initial encounter; T46.4X5A Adverse effect of angiotensin-converting-enzyme inhibitors, initial encounter; Y92.038 Other place in apartment as the place of occurrence of the external cause
CPT/HCPCS: 96372; 99281-25; J1100

== ENCOUNTER 2019-01-27 09:15 | Emergency (ER) | payer OTHER ==
[2019-01-27 09:21] VITALS: BP 142/79; PULSE 93; TEMP 98.3; BMI 40.4
--- NOTE | 2019-01-27 09:52 | PDOC ---
History of Present Illness - General Chief Complaint: Rash Stated Complaint: HIVES / ITCHING Time Seen by Provider: 01/27/19 09:26 History Source: Patient Exam Limitations: No Limitations Past History - Travel Traveled outside of the country in the last 30 days: No Close contact w/someone who was outside of country & ill: No - Past Medical History Allergies/Adverse Reactions: Allergies Allergy/AdvReac Type Severity Reaction Status Date / Time No Known Allergies Allergy Verified 01/27/19 09:18 Home Medications: Ambulatory Orders Amlodipine Besylate [Norvasc -] 10 mg PO DAILY 09/03/14 Gabapentin [Neurontin] 300 mg PO HS 11/11/18 Aspirin [ASA -] 81 mg PO DAILY #30 tab.chew 11/12/18 Rosuvastatin [Crestor -] 20 mg PO HS #30 tablet 11/12/18 Famotidine [Pepcid -] 20 mg PO BID 5 Days #10 tablet 11/13/18 predniSONE [Deltasone -] 20 mg PO BID 4 Days #8 tablet 11/13/18 Diphenhydramine HCl/Zinc Acet [Benadryl Itch Stopping Crm] 28.3 gm TP TID #1 tube 01/27/19 Pramipexole Dihydrochloride [Mirapex -] 0.125 mg PO HS 01/27/19 COPD: No DVT: No Diabetes: Yes (pre diabetes) HTN: Yes - Surgical History Orthopedic Surgery: Yes (Ligament repair on shoulder) - Immunization History Immunization Up to Date: Yes - Suicide/Smoking/Psychosocial Hx Smoking Status: No Smoking History: Never smoked Years of Tobacco Use: 0 Have you smoked in the past 12 months: No Number of Cigarettes Smoked Daily: 0 Cigars Per Day: 0 Hx Alcohol Use: No Drug/Substance Use Hx: No Substance Use Type: Alcohol Review of Systems - Review of Systems Able to Perform ROS?: Yes Comments:: 01/27/19 10:07 CONSTITUTIONAL: Absent: fever, chills, diaphoresis, generalized weakness, malaise, loss of appetite HEENT: Absent: rhinorrhea, nasal congestion, throat pain, throat swelling, difficulty swallowing, mouth swelling, ear pain, eye pain, visual Changes CARDIOVASCULAR: Absent: chest pain, loss of consciousness, palpitations, irregular heart rate, peripheral edema RESPIRATORY: Absent: cough, shortness of breath, dyspnea with exertion, orthopnea, wheezing, stridor, hemoptysis GASTROINTESTINAL: Absent: abdominal pain, abdominal distension, nausea, vomiting, diarrhea, constipation, melena, hematochezia GENITOURINARY: Absent: dysuria, frequency, urgency, hesitancy, hematuria, flank pain, genital pain MUSCULOSKELETAL: Absent: myalgia, arthralgia, joint swelling SKIN: Present: itching Absent: rash, pallor HEMATOLOGIC/IMMUNOLOGIC: Absent: easy bleeding, easy bruising, lymphadenopathy, frequent infections ENDOCRINE: Absent: unexplained weight gain, unexplained weight loss, heat intolerance, cold intolerance NEUROLOGIC: Absent: headache, focal weakness or paresthesias, dizziness, unsteady gait, seizure, mental status changes, bladder or bowel incontinence PSYCHIATRIC: Absent: anxiety, depression, suicidal or homicidal ideation, hallucinations. Is the patient limited Bel[place]ian proficient: No *Physical Exam - Vital Signs Last Vital Signs Temp Pulse Resp BP Pulse Ox 98.3 F 93 H 16 142/79 99 01/27/19 09:15 01/27/19 09:15 01/27/19 09:15 01/27/19 09:15 01/27/19 09:15 - Physical Exam Comments: 01/27/19 10:08 GENERAL: Well developed, well nourished. Awake and alert. No acute distress. HEENT: Normocephalic, atraumatic. PERRLA, EOMI. No conjunctival pallor. Sclera are non- icteric. Moist mucous membranes. Oropharynx is clear. NECK: Supple. Full ROM. No JVD. Carotid pulses 2+ and symmetric, without bruits. No thyromegaly. No lymphadenopathy. PULMONARY: No evidence of respiratory distress. Lungs clear to auscultation bilaterally. No wheezing, rales or rhonchi. SKIN: Scattered hives on the inner thighs b/l and under the axilla. Warm and dry. Normal capillary refill. No rashes. No jaundice. NEUROLOGICAL: Alert, awake, appropriate. Cranial nerves 2-12 intact. No deficits to light touch and temperature in face, upper extremities and lower extremities. No motor deficits in the in face, upper extremities and lower extremities. Normoreflexic in the upper and lower extremities. Normal speech. Toes are down- going bilaterally. Gait is normal without ataxia. PSYCHIATRIC: Cooperative. Good eye contact. Appropriate mood and affect. Medical Decision Making - Medical Decision Making 01/27/19 10:08 The patient is a 58-year-old female with past medical history of prediabetes, who presents to the ER today for itching for one month. She states she has seen her primary care doctor for this issue and was scheduled an allergy appointment for 01/31. She was told to stop all oral antihistamines for the testing and she is now itchy. States her whole body is itching and it started a month ago after eating mixed nuts. Denies fevers, chills, difficulty breathing, nausea and vomiting A/P: allergic reaction On exam pt with scattered hives through the mid thighs and under the R axilla Given allergy appointment in less than 5 days, hold oral medications Airway is clear and maintained with no edema Will send benadryl cream to pharmacy DC home with strict return precautions I discussed the physical exam findings, ancillary test results and final diagnoses with the patient. I answered all of the patient's questions. The patient was satisfied with the care received and felt comfortable with the discharge plan and treatment plan. The Patient agrees to follow up with the primary care physician/specialist within 24-72 hours. Return precautions were given. *DC/Admit/Observation/Transfer Diagnosis at time of Disposition: Rash - Discharge Dispostion Disposition: HOME Condition at time of disposition: Stable Decision to Admit order: No - Referrals Referrals: Varinder Mcwilliams MD [Staff Physician] - - Patient Instructions Printed Discharge Instructions: DI for General Allergic Reactions Additional Instructions: You were evaluated for your rash today It is most likely allergic in nature. Use the benadryl cream every 8 hours to affected areas Do not take any antihistamine by mouth until after you see the switch operator on Wednesday Return to the ER for any new or worsening symptoms - Post Discharge Activity Forms/Work/School Notes: Back to Work
== END 2019-01-27 10:41 | disposition home or self-care (01) ==
LOC: JERFT 09:15
DX: R21 Rash and other nonspecific skin eruption (principal); R73.03 Prediabetes
CPT/HCPCS: 99281-25

== ENCOUNTER 2024-03-24 11:34 | Emergency (ER) | payer OTHER ==
[2024-03-24 11:45] VITALS: BMI 43.9
[2024-03-24] MEDS: SODIUM CHLORIDE 1,000 ML IV SCH (12:15)
[2024-03-24 12:43] VITALS: BP 113/61; PULSE 55; RESP 20; TEMP 98
[2024-03-24 12:46] LABS: BASO % 0.4 % (0-2.0); EOS % 1.8 % (0-4.5); HEMATOCRIT 37.9 % (32.4-45.2); LYMPH % 24.8 % (8-40); MCH 25.5 pg (25.7-33.7); MCHC 31.8 g/dl (32.0-36.0); MEAN CELL VOLUME 80.1 fl (80-96); MONO % 7.2 % (3.8-10.2); NEUT % 65.8 % (42.8-82.8); PLATELET COUNT 386 10^3/uL (134-434); RBC 4.73 M/mm3 (3.60-5.2); RDW 15.5 % (11.6-15.6); URINE APPEARANCE CLEAR; URINE BILIRUBIN NEGATIVE (NEGATIVE); URINE COLOR YELLOW; URINE GLUCOSE (UA) NEGATIVE (NEGATIVE); URINE KETONE NEGATIVE (NEGATIVE); URINE LEUK ESTERASE NEGATIVE (NEGATIVE); URINE NITRITE NEGATIVE (NEGATIVE); URINE PROTEIN NEGATIVE (NEGATIVE); URINE UROBILINOGEN 0.2 mg/dL (0.2-1.0); WHITE BLOOD COUNT 7.9 K/mm3 (4.0-10.0)
[2024-03-24 12:54] LABS: INR 0.94 (0.83-1.09); PROTHROMBIN TIME (PATIENT) 10.8 SEC (9.7-13.0)
[2024-03-24 12:57] LABS: ACTIVATED PTT 38.9 SECONDS (25.2-36.5)
[2024-03-24 13:04] LABS: POTASSIUM 4.2 mmol/L (3.5-5.1)
[2024-03-24 13:06] LABS: CALCIUM 9.1 mg/dL (8.5-10.1)
[2024-03-24 13:07] LABS: ALBUMIN 3.2 g/dl (3.4-5.0)
[2024-03-24 13:10] LABS: BLOOD UREA NITROGEN 12.2 mg/dL (7-18); CREATININE 0.9 mg/dL (0.55-1.3)
[2024-03-24 13:11] LABS: TOT PROT 7.9 g/dl (6.4-8.2)
[2024-03-24 13:15] LABS: BILIRUBIN,TOTAL 0.3 mg/dL (0.2-1)
[2024-03-24] MEDS ORDERED: ATORVASTATIN CA 40 MG TABLET (FP) PO ONE (14:39)
[2024-03-24] MEDS ORDERED: ASPIRIN 81 MG CHEWABLE TABLETS PO ONE (14:40)
[2024-03-25] MEDS ORDERED: ASPIRIN 81 MG CHEWABLE TABLETS PO SCH (10:00)
[2024-03-25] MEDS ORDERED: amLODIPine BESYLATE 10 MG TABLET (FP) PO SCH (10:00)
[2024-03-25] MEDS ORDERED: ENOXAPARIN NA (PORCINE) 40 MG/0.4 ML DISP.SYRIN SQ SCH (10:00)
== END 2024-03-24 15:10 | disposition left against medical advice (07) ==
LOC: JER 11:34
DX: R20.0 Anesthesia of skin (principal); R51.9 Headache, unspecified
CPT/HCPCS: 36415; 70450-TC; 71045-TC-FY; 80053; 80061; 81003; 82550; 82962; 83036; 84484; 85025; 85610; 85730; 86850; 86900; 86901; 93005; 93010; 99285-25